=== PATIENT | male | born 1985 | race Caucasian/White ===

== ENCOUNTER 2024-10-27 18:50 | Emergency (ER) | payer BC ==
[2024-10-27] MEDS ORDERED: METOCLOPRAMIDE 10 MG/2mL INJ ONE (19:34)
[2024-10-27] MEDS ORDERED: DIPHENHYDRAMINE 50 MG/ML VIAL ONE (19:34)
[2024-10-27] MEDS ORDERED: KETOROLAC 30 MG/ML INJ ONE (19:34)
[2024-10-27] MEDS ORDERED: Ringers Lactate 1,000 ML IV ONE (19:50)
--- NOTE | 2024-10-27 20:13 | RAD REPORT ---
EXAM: CT Head Brain Wo Cont HISTORY: HEADACHE COMPARISON: None TECHNIQUE: Multiple contiguous axial images were obtained for a CT of the brain without contrast. Sag ittal and coronal reformats were performed. One or more of the following dose reduction techniques were used: Automated exposure control, adjus tment of the mA and kV according to patient size, and iterative reconstruction. Unless otherwise specified, incidental findings do not require dedicated imaging follow-up. FINDINGS: No evidence of hydrocephalus, intracranial hemorrhage, or extra-axial fluid collection. The brain is normal in morphology. The calvarium is intact. Right maxillary sinus mucus retention. Mastoid air cells are essentially pennie ar. IMPRESSION: No evidence of acute intracranial abnormality.
[2024-10-27] MEDS ORDERED: DIAZEPAM 5 MG TABLET ONE (20:36)
--- NOTE | 2024-10-27 21:25 | EDPHYS ---
Physician Documentation [facility] Name: Fuad Groves Age: 39 yrs Sex: Male : 1985 Arrival Date: 10/27/2024 Time: 18:50 Bed 10 Private MD: ED Physician Yobany Silver HPI: 10/27 20:31 This 39 yrs old Male presents to ER via Ambulatory with complaints of Nausea/Vomiting, ms3 Headache. 20:31 39-year-old male with past medical history of back problems presents to the emergency ms3 department for posterior headache that began at 3 PM reaching maximal intensity at 4 PM. Patient states he has previously had headaches like this. He rates his discomfort an 8/10. Patient endorses nausea, vomiting. He denies chest pain or shortness of breath. Patient states movements, noise, light make his symptoms worse. He denies alleviating factors.. Historical: - Allergies: 19:08 No Known Allergies; ll1 - PSHx: 19:08 bladder reconstruction; ll1 - Immunization history:: Adult Immunizations up to date. - Social history:: Smoking status: Patient reports the use of cigarette tobacco products, smokes one-half pack cigarettes per day, Reported history of juuling and/or vaping. ROS: 20:31 Constitutional: Negative for fever, and chills. Cardiovascular: Negative for chest ms3 pain, and palpitations. Respiratory: Negative for shortness of breath, cough, wheezing, and pleuritic chest pain, Back: Negative for injury and pain, MS/Extremity: Negative for injury and deformity, Skin: Negative for injury, rash, and discoloration, 20:31 Abdomen/GI: Positive for nausea and vomiting, 20:31 Neuro: Positive for headache, Exam: 20:31 Constitutional: This is a well developed, well nourished patient who is awake, alert, ms3 and in no acute distress. Cardiovascular: Regular rate and rhythm with a normal S1 and S2. No gallops, murmurs, or rubs. Normal PMI, no JVD. No pulse deficits. Respiratory: Lungs have equal breath sounds bilaterally, clear to auscultation and percussion. No rales, rhonchi or wheezes noted. No increased work of breathing, no retractions or nasal flaring. Abdomen/GI: Soft, non-tender, with normal bowel sounds. No distension or tympany. No guarding or rebound. No evidence of tenderness throughout. Skin: Warm, dry with normal turgor. Normal color with no rashes, no lesions, and no evidence of cellulitis. 20:31 Neuro: Orientation: is normal, to person, place, time \T\ situation. Mentation: is normal, Memory: is normal, Cranial nerves: CN I not tested, CN II- XII are normal as tested, Cerebellar function: is grossly normal, Motor: is normal, Sensation: is normal, Gait: is steady, at a normal pace, Vital Signs: 19:09 BP 135 / 92; Pulse 85; Resp 18; Temp 97; Pulse Ox 100% ; Weight 92.99 kg; Height 6 ft. ll1 3 in. ; Pain 8/10; 21:01 BP 107 / 60; Pulse 84; Resp 16; Pulse Ox 100% on R/A; jb4 19:09 Body Mass Index 25.62 (92.99 kg, 190.5 cm) ll1 19:09 Pain Scale: Adult ll1 MDM: 19:22 Medical Screening Exam initiated ms3 20:35 Differential diagnosis: SAH vs Migraine vs Tension PIERCE vs Dehydration. Refusal of ms3 service: The patient/guardian displays adequate decision making capability and despite a detailed discussion of alternatives, benefits, risks, and consequences refuses: Lumbar Puncture procedure. ED course: Discussed negative CT head with the patient. Patient states his headache remains. Patient offered lumbar puncture as CT scan without contrast does not have 100% sensitivity for subarachnoid hemorrhage. Patient declines lumbar puncture at this time. Patient requesting muscle relaxer as he states he has muscle spasms and pending MRIs and x-rays of his shoulder for this. 5 mg p.o. Valium ordered. Will reassess.. 21:25 Data reviewed: vital signs, nurses notes, radiologic studies, CT scan, and as a result, ms3 I will discharge patient. I considered the following discharge prescriptions or medication management in the emergency department Medications were administered in the Emergency Department. See MAR. Independent interpretation of the following test(s) in the Emergency Department CT Scan: My interpretation is CT Head without contrast images reviewed by me did not reveal ICH. Counseling: I had a detailed discussion with the patient and/or guardian regarding the historical points, exam findings, and any diagnostic results supporting the discharge/admit diagnosis, radiology results, the need for outpatient follow up, to return to the emergency department if symptoms worsen or persist or if there are any questions or concerns that arise at home. Special discussion: I discussed with the patient/guardian in detail that at this point there is no indication for admission to the hospital. It is understood, however, that if the symptoms persist or worsen the patient needs to return immediately for re-evaluation. ED course: Discussed lumbar puncture a second time with patient and he declines at this time. Patient symptoms mildly improved. Patient agreeable with discharge at this time. All questions were answered. Return precautions discussed to include worsening symptoms, altered mental status, or any other concerns. On reevaluation patient is alert and oriented x 4, in no apparent distress, nontoxic-appearing, speaking full sentences, without vomiting.. 10/27 19:22 Order name: CT Head Brain wo Cont; Complete Time: 20:17 ms3 Administered Medications: 19:54 Drug: metoCLOPramide IVP 10 mg IVP once; over 1 to 2 minutes Route: IVP; Site: right jb4 wrist; 20:44 Follow up: Response: No adverse reaction; Marked relief of symptoms; Nausea is decreasedjb4 19:54 Drug: diphenhydrAMINE IVP 25 mg IVP once Route: IVP; Site: right wrist; jb4 20:43 Follow up: Response: No adverse reaction; Marked relief of symptoms; Nausea is decreasedjb4 19:54 Drug: Ketorolac IVP 10 mg 10 mg IVP once Route: IVP; Site: right wrist; jb4 20:30 Follow up: Response: No adverse reaction; No change in condition; Pain is unchanged, jb4 physician notified 19:54 Drug: Ringers - Lactated Ringers Solution IV 1000 ml IV at bolus bolus; to be given as jb4 a bolus over 60 minutes Route: IV; Rate: bolus; Site: right wrist; 21:46 Follow up: Response: No adverse reaction; Marked relief of symptoms; IV Status: jb4 Completed infusion; IV Intake: 1000ml 20:42 Drug: Diazepam PO 5 mg PO once Route: PO; jb4 21:38 Follow up: Response: No adverse reaction; Marked relief of symptoms; Pain is decreased jb4 Disposition Summary: 10/27/24 21:24 Discharge Ordered Notes: Location: Home ms3 Condition: Stable ms3 Diagnosis - Headache ms3 - Muscle spasm ms3 Followup: ms3 - With: Klaus Mojica MD - When: 2 - 3 days - Reason: Recheck today's complaints Discharge Instructions: - Discharge Summary Sheet ms3 - General Headache Without Cause ms3 Forms: - Medication Reconciliation Form ms3 - Antibiotic Education ms3 - Prescription Opioid Use ms3 - Patient Portal Instructions ms3 - Leadership Thank You Letter ms3 Signatures: Dispatcher [employer] Rene Sequeira RN RN jb4 Michelle Mcclure RN RN ll1 Yobany Silver DO DO ms3 Corrections: (The following items were deleted from the chart) 19:23 19:23 Head Brain Wo Cont+CT.RAD.BRZ ordered. EDMS EDMS
--- NOTE | 2024-10-27 21:25 | ER ---
Nurse's Notes [facility] Name: Fuad Groves Age: 39 yrs Sex: Male : 1985 Arrival Date: 10/27/2024 Time: 18:50 Bed 10 Private MD: Diagnosis: Headache;Muscle spasm Presentation: 10/27 19:09 Chief complaint: Patient states: PIERCE, upper back pain, N/V started at 4 PM. Coronavirus ll1 screen: Client denies travel out of the [place] in the last 14 days. At this time, the client does not indicate any symptoms associated with coronavirus-19. Ebola Screen: Patient denies travel to an Ebola-affected area in the 21 days before illness onset. Initial Sepsis Screen: Does the patient meet any 2 criteria? No. Patient's initial sepsis screen is negative. Does the patient have a suspected source of infection? No. Patient's initial sepsis screen is negative. Risk Assessment: Do you want to hurt yourself or someone else? Patient reports no desire to harm self or others. Onset of symptoms was October 27, 2024. 19:09 Method Of Arrival: Ambulatory ll1 19:09 Acuity: LAKISHA 3 ll1 Triage Assessment: 19:11 General: Appears uncomfortable, Behavior is calm, cooperative, appropriate for age. ll1 Pain: Complains of pain in upper back/neck Pain currently is 8 out of 10 on a pain scale. Quality of pain is described as aching. Neuro: Reports headache weakness. GI: Reports nausea, vomiting. Historical: - Allergies: 19:08 No Known Allergies; ll1 - PSHx: 19:08 bladder reconstruction; ll1 - Immunization history:: Adult Immunizations up to date. - Social history:: Smoking status: Patient reports the use of cigarette tobacco products, smokes one-half pack cigarettes per day, Reported history of juuling and/or vaping. Screenin:56 [facility] ED Fall Risk Assessment (Adult) History of falling in the last 3 months, jb4 including since admission No falls in past 3 months (0 pts) Confusion or Disorientation No (0 pts) Intoxicated or Sedated No (0 pts) Impaired Gait No (0 pts) Mobility Assist Device Used No (0 pt) Altered Elimination No (0 pt) Score/Fall Risk Level 0 - 2 = Low Risk Oriented to surroundings, Maintained a safe environment. Abuse screen: Denies threats or abuse. Nutritional screening: No deficits noted. Tuberculosis screening: No symptoms or risk factors identified. Assessment: 19:56 General: Appears in no apparent distress. uncomfortable, Behavior is. Pain: Complains jb4 of pain in headache Pain does not radiate. Pain currently is 10 out of 10 on a pain scale. Quality of pain is described as sharp. Neuro: Level of Consciousness is awake, alert, obeys commands, Oriented to person, place, time, situation. Cardiovascular: Patient's skin is warm and dry. Respiratory: Airway is patent Respiratory effort is even, unlabored, Respiratory pattern is regular, symmetrical. GI: Abdomen is flat, non-distended, Reports nausea, vomiting. Derm: Skin is intact, Skin is pink, warm \T\ dry. 20:39 Reassessment: Patient appears in no apparent distress at this time. Patient and/or jb4 family updated on plan of care and expected duration. Pain level reassessed. Patient is alert, oriented x 3, equal unlabored respirations, skin warm/dry/pink. reports nausea has improved but pain is unchanged. 21:01 Reassessment: Patient appears in no apparent distress at this time. Patient and/or jb4 family updated on plan of care and expected duration. Pain level reassessed. Patient is alert, oriented x 3, equal unlabored respirations, skin warm/dry/pink. Patient states feeling better. Patient states symptoms have improved. Vital Signs: 19:09 BP 135 / 92; Pulse 85; Resp 18; Temp 97; Pulse Ox 100% ; Weight 92.99 kg; Height 6 ft. ll1 3 in. ; Pain 8/10; 21:01 BP 107 / 60; Pulse 84; Resp 16; Pulse Ox 100% on R/A; jb4 19:09 Body Mass Index 25.62 (92.99 kg, 190.5 cm) ll1 19:09 Pain Scale: Adult ll1 ED Course: 18:55 Patient arrived in ED. gl 19:00 Yobany Silver DO is Attending Physician. ms3 19:10 Triage completed. ll1 19:10 Arm band placed on. ll1 19:13 Patient placed in an exam room, on a stretcher. ll1 19:45 Inserted saline lock: 22 gauge in right wrist, using aseptic technique. jb4 19:55 Rene Cramer, RN is Primary Nurse. jb4 19:56 Patient has correct armband on for positive identification. Bed in low position. Call jb4 light in reach. Side rails up X 1. Provided Education on: plan of care. 20:07 CT Head Brain wo Cont In Process Unspecified. EDMS 21:24 Klaus Mojica MD is Referral Physician. ms3 21:47 No provider procedures requiring assistance completed. IV discontinued, intact, jb4 bleeding controlled, No redness/swelling at site. Pressure dressing applied. Administered Medications: 19:54 Drug: metoCLOPramide IVP 10 mg IVP once; over 1 to 2 minutes Route: IVP; Site: right jb4 wrist; 20:44 Follow up: Response: No adverse reaction; Marked relief of symptoms; Nausea is decreasedjb4 19:54 Drug: diphenhydrAMINE IVP 25 mg IVP once Route: IVP; Site: right wrist; jb4 20:43 Follow up: Response: No adverse reaction; Marked relief of symptoms; Nausea is decreasedjb4 19:54 Drug: Ketorolac IVP 10 mg 10 mg IVP once Route: IVP; Site: right wrist; jb4 20:30 Follow up: Response: No adverse reaction; No change in condition; Pain is unchanged, jb4 physician notified 19:54 Drug: Ringers - Lactated Ringers Solution IV 1000 ml IV at bolus bolus; to be given as jb4 a bolus over 60 minutes Route: IV; Rate: bolus; Site: right wrist; 21:46 Follow up: Response: No adverse reaction; Marked relief of symptoms; IV Status: jb4 Completed infusion; IV Intake: 1000ml 20:42 Drug: Diazepam PO 5 mg PO once Route: PO; jb4 21:38 Follow up: Response: No adverse reaction; Marked relief of symptoms; Pain is decreased jb4 Medication: 19:56 VIS not applicable for this client. jb4 Intake: 21:46 IV: 1000ml; Total: 1000ml. jb4 Outcome: 21:24 Discharge ordered by . ms3 21:47 Discharged to home ambulatory, with family, jb4 21:47 Condition: stable 21:47 Discharge instructions given to patient, Instructed on discharge instructions, follow up and referral plans. Demonstrated understanding of instructions, follow-up care, 21:47 Patient left the ED. jb4 Signatures: Dispatcher [employer] EDMS Rene Cramer RN RN jb4 Michelle Mcclure RN RN ll1 Yobany Silver, DO DO ms3 Alexandria Lloyd, Reg Reg gl Corrections: (The following items were deleted from the chart) 20:40 20:39 Reassessment: Patient appears in no apparent distress at this time. Patient jb4 and/or family updated on plan of care and expected duration. Pain level reassessed. Patient is alert, oriented x 3, equal unlabored respirations, skin warm/dry/pink. jb4
[2024-10-27 22:10] VITALS: TEMP 97; O2SAT 100
[2024-10-27 22:12] VITALS: BP 107/60
== END 2024-10-27 21:47 | disposition home or self-care (01) ==
LOC: ER 18:50
DX: R51.9 Headache, unspecified (principal); M62.838 Other muscle spasm; F17.210 Nicotine dependence, cigarettes, uncomplicated
CPT/HCPCS: 96365; 70450; 96375; 99284; 96366; J2765; J1200; J7120